=== PATIENT | male | born 1985 | race Two or more races ===

== ENCOUNTER 2017-05-07 18:07 | Emergency (ER) | payer BC, OTHER ==
--- NOTE | 2017-05-07 19:36 | EDM.PDOC ---
ED HPI GENERAL MEDICAL PROBLEM - General Chief Complaint: Back Pain or Injury Stated Complaint: BACK INJURY Time Seen by Provider: 05/07/17 19:01 Source of Information: Reports: Patient History Limitations: Reports: No Limitations - History of Present Illness INITIAL COMMENTS - FREE TEXT/NARRATIVE: Is a 31-year-old male. He was working this evening when he was under a pole weighing 1000+ pounds and apparently the cable stock as they were lowering it so he was trying to fix the cable and the worker that was in the cab controlling the cables apparently accidentally released the pole slightly became down about a foot he was on his hands and knees and struck him just below the scapula and his lower back and rolled off. Initially it knocked him to his belly and he was having low back pain and difficulty in standing and walking. When he got home it seemed to ease up some but he called the [employer]'s triage line and they suggested he come to the ER for evaluation. Right now he does not seem to be uncomfortable and he denies any significant pain. He has no pain down his legs he denies any difficulty in breathing or pain in his ribs. Right Middle Back Pain Score (Numeric/FACES): 0 - Related Data Allergies Allergy/AdvReac Type Severity Reaction Status Date / Time No Known Allergies Allergy Verified 05/07/17 18:43 Home Meds: Home Meds . [No Known Home Meds] 05/07/17 [History] Past Medical History - Past Health History Medical/Surgical History: Denies Medical/Surgical History Social & Family History - Tobacco Use Smoking Status *Q: Never Smoker - Caffeine Use Caffeine Use: Reports: Coffee, Energy Drinks, Soda - Recreational Drug Use Recreational Drug Use: No ED ROS GENERAL - Review of Systems Review Of Systems: See Below Constitutional: Denies: Fever, Chills HEENT: Reports: No Symptoms Respiratory: Denies: Shortness of Breath, Pleuritic Chest Pain, Cough Cardiovascular: Reports: No Symptoms Endocrine: Reports: No Symptoms GI/Abdominal: Reports: No Symptoms : Reports: No Symptoms Musculoskeletal: Reports: Back Pain Skin: Reports: No Symptoms Neurological: Reports: No Symptoms Psychiatric: Reports: No Symptoms Hematologic/Lymphatic: Reports: No Symptoms ED EXAM,LOWER BACK PAIN/INJURY - Physical Exam Exam: See Below Exam Limited By: No Limitations General Appearance: Alert, WD/WN, No Apparent Distress Eye Exam: Bilateral Eye: Normal Inspection Ears: Normal External Exam Nose: Normal Inspection Throat/Mouth: Normal Inspection, Normal Lips, Normal Voice, No Airway Compromise Head: Normocephalic Neck: Supple, Non-Tender, Full Range of Motion Respiratory/Chest: No Respiratory Distress, Lungs Clear, Normal Breath Sounds, Other (Palpation of the right posterior ribs and scapula area reveals no tenderness on the right side of the right ribs, left ribs are atraumatic) Cardiovascular: Regular Rate, Rhythm, No Murmur GI/Abdominal: Soft, Other (Enlarged abdomen but denies any tenderness on palpation of the 4 quadrants) Back Exam: Normal Inspection, Other (On palpation of his thoracic and lumbar spine he has no midline spine pain, he is able to bend and lie down and twist and lateral rotate his waist and does not appear to have any low back pain where he was hurting before, he is able to tiptoe and heel walk and he is able to hyperextend his back and he denies any pain at this time, there is no pain down his legs) Extremities: Normal Inspection, Normal Range of Motion, Non-Tender Neurological: Alert, Normal Mood/Affect, Oriented x 3 Psychiatric: Normal Affect, Normal Mood Skin Exam: Warm, Dry Course - Vital Signs Last Recorded V/S: Last Vital Signs Temp 99.1 F 05/07/17 18:46 Pulse 92 05/07/17 18:46 Resp 20 05/07/17 18:46 BP 221/151 H 05/07/17 18:46 Pulse Ox 97 05/07/17 18:46 - Orders/Labs/Meds Orders: Active Orders 24 hr Category Date Time Status Lumbar Spine 2 or 3V [CR] Stat Exams 05/07/17 19:13 Taken - Radiology Interpretation Free Text/Narrative:: Lumbar films do not reveal any acute fractures. - Re-Assessments/Exams Free Text/Narrative Re-Assessment/Exam: 05/07/17 20:10 I spoke to the patient as regarding the x-ray results. Departure - Departure Time of Disposition: 20:10 Disposition: Home, Self-Care 01 Condition: Good Clinical Impression: Lumbar back sprain Qualifiers: Encounter type: initial encounter Qualified Code(s): S33.5XXA - Sprain of ligaments of lumbar spine, initial encounter Lumbar contusion Qualifiers: Encounter type: initial encounter Qualified Code(s): S30.0XXA - Contusion of lower back and pelvis, initial encounter Contusion of right upper back excluding scapular region Qualifiers: Encounter type: initial encounter Qualified Code(s): S20.221A - Contusion of right back wall of thorax, initial encounter - Discharge Information Instructions: Muscle Strain, [id number] Referrals: PCP,None [Primary Care Provider] - Forms: ED Department Discharge, ED Return to Work/School Form Additional Instructions: Get some Aleve or some ibuprofen and take it for the soreness in the stiffness, continued to move your back since that is how it heals and stretch the muscles, you may return to work tomorrow you just need to be careful about heavy lifting or bending, 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 Follow-up with your designated medical provider on Tuesday, return to the ER if needed - My Orders Last 24 Hours: My Active Orders 05/07/17 19:13 Lumbar Spine 2 or 3V [CR] Stat - Assessment/Plan Last 24 Hours: My Active Orders 05/07/17 19:13 Lumbar Spine 2 or 3V [CR] Stat
--- NOTE | 2017-05-09 06:45 | CR ---
Lumbar spine: AP, lateral and coned-down lateral views centered to the lumbosacral junction were obtained. Moderate disc space narrowing is noted at L4-L5 with vacuum phenomena. Mild disc space narrowing is noted at L2-L3, L3-L4 and L5-S1. Posterior osteophytes are seen at L2-L3 and L3-L4. Vertebral body heights are maintained. Minimal scattered endplate osteophytes are seen. Slight anterior wedge deformities within the thoracic spine are seen believed to be developmental. Pedicles as well as transverse and spinous processes are intact. No subluxation or fracture is appreciated. Impression: 1. Degenerative change as noted above. Nothing acute is definitely seen. Diagnostic code #2
== END 2017-05-07 20:30 | disposition home or self-care (01) ==
LOC: JD.ED 18:07
DX: S33.5XXA Sprain of ligaments of lumbar spine, initial encounter (principal); S30.0XXA Contusion of lower back and pelvis, initial encounter; S20.221A Contusion of right back wall of thorax, initial encounter; W22.8XXA Striking against or struck by other objects, initial encounter; Y99.0 Civilian activity done for income or pay
CPT/HCPCS: 72100; 72100-26; 99283; 99284